=== PATIENT | male | born 1970 | race Caucasian/White ===

== ENCOUNTER 2017-10-17 17:04 | Emergency (ER) | payer SELFPAY ==
[2017-10-17 17:55] VITALS: BP 131/84
--- NOTE | 2017-10-17 18:14 | ED ---
Upper Extremity Pain - HPI Summary HPI Summary: 46 yr old male with left anterior shoulder pain, and a knot lateral to left neck in the muscle posterior to trapezius. He was lifting a piece of steel siding almost a week ago and wind caught it. The wind pushed the steel backward and forced his arm upward and backward. He has had good range of motion, but sleeping is difficulty and he has pain in the muscles medial and behind shoulder. No loss function in hand or numbness. No other complaints. No neck pain. - History of Current Complaint Chief Complaint: UCUpperExtremity Stated Complaint: WC - LEFT SHOULDER COMPLAINT Time Seen by Provider: 10/17/17 18:01 - Allergies/Home Medications Allergies/Adverse Reactions: Allergies Allergy/AdvReac Type Severity Reaction Status Date / Time meperidine Allergy Palpitation Verified 10/17/17 17:49 s Home Medications: Home Medications Adalimumab [Humira] 10 mg SC SEE INSTRUCTIONS 10/17/17 [History Confirmed ] Meloxicam 7.5 mg PO DAILY 10/17/17 [History Confirmed 10/17/17] PMH/Surg Hx/FS Hx/Imm Hx Endocrine/Hematology History: Denies: Hx Diabetes, Hx Thyroid Disease Cardiovascular History: Reports: Hx Hypertension Respiratory History: Denies: Hx Asthma - Surgical History Surgery Procedure, Year, and Place: appy Infectious Disease History: No Infectious Disease History: Denies: Traveled Outside the [place] in Last 30 Days - Family History Known Family History: Positive: None - Social History Occupation: Employed Full-time Alcohol Use: Occasionally Substance Use Type: Reports: None Smoking Status (MU): Never Smoked Tobacco Review of Systems Constitutional: Negative Positive: Other - left shoulder pain All Other Systems Reviewed And Are Negative: Yes Physical Exam Triage Information Reviewed: Yes Vital Signs On Initial Exam: Initial Vitals Temp Pulse Resp BP Pulse Ox 98.7 F 69 16 131/84 98 10/17/17 17:49 10/17/17 17:49 10/17/17 17:49 10/17/17 17:49 10/17/17 17:49 Vital Signs Reviewed: Yes Appearance: Positive: Well-Appearing, No Pain Distress Skin: Positive: Warm, Skin Color Reflects Adequate Perfusion Head/Face: Positive: Normal Head/Face Inspection Eyes: Positive: EOMI ENT: Positive: Normal ENT inspection Neck: Positive: Nontender. Negative: Tenderness @ Respiratory/Lung Sounds: Positive: Other - normal effort Cardiovascular: Positive: Pulses are Symmetrical in both Upper and Lower Extremities Musculoskeletal: Positive: Other - the left anterior shoulder is tender over the long head biceps tendon. Some tenderness over the supraspinatus muscle belly mild tender, no STS, no mass. He has good range of motion left shoulder internal external rotation, abduction and forward flexion good. Normal function of left hand neurovasc intact. Neurological: Positive: Sensory/Motor Intact, Alert, Oriented to Person Place, Time, CN Intact II-III Psychiatric: Positive: Normal - Edi Coma Scale Best Eye Response: 4 - Spontaneous Best Motor Response: 6 - Obeys Commands Best Verbal Response: 5 - Oriented Coma Scale Total: 15 Diagnostics - Vital Signs Vital Signs Temp Pulse Resp BP Pulse Ox 10/17/17 17:49 98.7 F 69 16 131/84 98 - Laboratory Lab Statement: Any lab studies that have been ordered have been reviewed, and results considered in the medical decision making process. - Radiology left shoulder Xray Interpretation: Positive (See Comments) - possible acromium fracutre. Radiology Interpretation Completed By: Radiologist Course/Dx - Course Course Of Treatment: 46 yr old xrays discussed with him. he is not focally tender over the acromium or scapula. 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 I have relayed this topatient. The sling is recommended and follow up with Orthopedic surgery to eval his shoulder, rotator cuff and acromium more. Light duty at work till clear by ortho. - Diagnoses Provider Diagnoses: Rotator cuff injury Discharge - Discharge Plan Condition: Good Disposition: HOME Prescriptions: Ibuprofen TAB* [Motrin TAB* 600 MG] 600 mg PO Q8H PRN #14 tab PRN Reason: Pain Patient Education Materials: Rotator Cuff Injury (ED) Forms: *Work Release Referrals: Sharyn Hernandez [Primary Care Provider] - Robbi Macario MD [Medical Doctor] - 1 Day
--- NOTE | 2017-10-17 18:38 | RAD ---
INDICATION: Left shoulder pain COMPARISON: None TECHNIQUE: Routine frontal, Y and axial views were obtained. FINDINGS: There is the possibility of a fracture of the acromion/scapula. Consider CT imaging if there is persistent concern. The a.c. and glenohumeral joints are intact. IMPRESSION: POSSIBLE SCAPULAR FRACTURE. SUGGEST FOLLOW-UP AND/OR CT IMAGING INDICATED.
== END 2017-10-17 19:13 | disposition home or self-care (01) ==
LOC: UCCORT 17:04
DX: Z88.5 Allergy status to narcotic agent (principal); S46.002A Unspecified injury of muscle(s) and tendon(s) of the rotator cuff of left shoulder, initial encounter; X50.0XXA Overexertion from strenuous movement or load, initial encounter; Y93.89 Activity, other specified; Y92.9 Unspecified place or not applicable; Y99.0 Civilian activity done for income or pay; E11.9 Type 2 diabetes mellitus without complications; I10 Essential (primary) hypertension
CPT/HCPCS: 99213; G0463

== ENCOUNTER 2017-12-12 09:08 | Day surgery (SDC) | payer BC, OTHER ==
--- NOTE | 2017-12-03 04:09 | HP ---
PREOPERATIVE HISTORY AND PHYSICAL: DATE OF ADMISSION/SURGERY: 12/12/17 [facility] DATE OF OFFICE VISIT: 11/29/17 ATTENDING SURGEON: Dr. Jessica Purvis.* (DICTATED BY NUSRAT EDMONDS) PROCEDURE: Left shoulder arthroscopic rotator cuff repair, decompression, debridement, subpectoral biceps tenodesis. CHIEF COMPLAINT: Left shoulder pain. HISTORY OF PRESENT ILLNESS: Brian is a 46-year-old male who presents to clinic for left shoulder pain due to rotator cuff tear and biceps tendinitis. He has failed conservative measures and therefore has agreed to undergo a left shoulder arthroscopic rotator cuff repair, decompression, debridement, and subpectoral biceps tenodesis with on 12/12/17. PAST MEDICAL HISTORY: Hypertension, positive for HLA-B27, and plantar fasciitis. PAST SURGICAL HISTORY: Appendectomy. The patient denies prior complications with anesthesia. MEDICATIONS: 1. Atenolol 50 mg 1 by mouth daily. 2. Humira 40 mg/0.8 mL inject subcu every 2 weeks. 3. Hydrochlorothiazide 25 mg 1 by mouth daily. 4. Meloxicam 7.5 mg 1 by mouth daily. ALLERGIES: DEMEROL. FAMILY HISTORY: Positive for heart disease and back problems. Denies family history of DVT or PE. SOCIAL HISTORY: He is . He lives with his . 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 He denies tobacco use. He reports occasional alcohol consumption. He denies illegal drug use. REVIEW OF SYSTEMS: A 14-point review of systems was reviewed with the patient. Positive for current complaint, otherwise negative. Denies fevers, chills, chest pain, shortness of breath, history of DVT or PE, history of bleeding disorder, history of hep C or HIV. PHYSICAL EXAMINATION GENERAL: A 46-year-old well-developed, well-nourished male, in no acute distress. Alert and oriented x3. Appropriate mood and affect. VITAL SIGNS: Pulse 60, blood pressure 120/80, respiratory rate 16, temperature 98. HEENT: Normocephalic, atraumatic. PERRLA. Throat clear. NECK: Supple. PULMONARY: Lungs are clear to auscultation bilaterally. No wheezing, rhonchi, or rales. CARDIO: Regular rate and rhythm. S1 and S2. No murmurs, gallops, or rubs. No edema. ABDOMEN: Positive bowel sounds, soft, nontender. NEURO: Alert and oriented x3. Cranial nerves grossly intact. Sensation intact to light touch. MUSCULOSKELETAL: Left upper extremity, skin is intact. No warmth or erythema. Tenderness over the bicipital groove. Forward flexion abduction to 170, external rotation to 75, internal rotation to T12. +5/5 strength to rotator cuff testing with pain with supraspinatus testing. Positive Yariel, impingement, [place], [place] and [place]. +2 radial pulse. Sensation intact to light touch distally. DIAGNOSTIC STUDIES: Multi-view x-rays of the left shoulder and MRI revealed os acromion and full-thickness supraspinatus tendon tear with partial tear of the subscap in the anterior portion and fluid in the bicipital groove. IMPRESSION: Left shoulder rotator cuff tear and biceps tendinitis. PLAN: The patient is scheduled to undergo a left shoulder arthroscopic rotator cuff repair, decompression, debridement, and subpectoral biceps tenodesis with Dr. Purvis on 12/12/17. He will return to the office 10 to 14 days postop for followup and suture removal. Percocet will be used for postop pain management and Keflex will be used for antibiotic prophylaxis. The patient will continue to work on light duty until surgery and then will be out of work from date of surgery until further notice. NUSRAT EDMONDS [id number]/[facility] #: [id number] DOMONIQUE
[~2017-12-12 09:08] MED LIST: Buffered Lidocaine 0.9% SYRIN* 5 ML/SYR SYRINGE INTRADERM ONE; Dexamethasone TAB* 4 MG PO ONE; DiMENhydriNATE IV* 50 MG/ML VIAL IV PUSH PRN; Famotidine TAB* 20 MG PO ONE; Morphine INJ* 2 MG/ML 1 ML CARPUJECT IV PRN; Naloxone* 0.4 MG/ML 1 ML VIAL IV PRN; Ondansetron INJ* 2 MG/ML VIAL ONE; PROCHLORPERAZINE INJ 5 MG/ML 2 ML VIAL IV PRN; Scopolamine 1.5 mg* PATCH TRANSDERM PRN; fentaNYL* 50 MCG/ML 2 ML VIAL (100 MCG VIAL) IV PRN; oxyCODONE/Acetamin 5/325 MG* TAB PO PRN
[2017-12-12] MEDS ORDERED: fentaNYL* 50 MCG/ML 2 ML VIAL (100 MCG VIAL) ONE (09:17)
[2017-12-12] MEDS ORDERED: Midazolam* 1 MG/ML 5 ML VIAL (5 MG) ONE (09:17)
[2017-12-12] MEDS ORDERED: Ondansetron ODT TAB* 4 MG ONE (09:41)
[2017-12-12] MEDS ORDERED: Dexamethasone TAB* 4 MG ONE (09:42)
[2017-12-12] MEDS ORDERED: ceFAZolin 2 GM PREMIX (*) 2 GM/50 ML BAG IVPB ONE (09:42)
[2017-12-12] MEDS ORDERED: Famotidine TAB* 20 MG ONE (09:42)
[2017-12-12] MEDS ORDERED: Bupivacaine 0.25% SDV* 30 ML ONE (10:41)
[2017-12-12] MEDS ORDERED: Ketorolac INJ* 30 MG/ML 1 ML VIAL ONE (11:52)
[2017-12-12] MEDS ORDERED: Lidocaine 2% PF * 5 ML VIAL ONE (11:52)
[2017-12-12] MEDS ORDERED: Propofol* 10 MG/ML 20 ML BTL IV PUSH ONE (11:52)
[2017-12-12] MEDS ORDERED: Metoprolol Tartrate IV* 1 MG/ML 5 ML VIAL ONE (12:11)
[2017-12-12 13:42] VITALS: BP 122/89
--- NOTE | 2017-12-13 04:53 | OP ---
DATE OF OPERATION: 12/12/17 - [facility] DATE OF : 70 ATTENDING SURGEON: Jessica Purvis MD WEB SYSTEMS DEVELOPER: NUSRAT Trevino. An reference assistant was needed for the entirety of the case to help with positioning, retraction, and utilized throughout all portions of case. ANESTHESIOLOGIST: Dr. Hernandez. ANESTHESIA: General interscalene block. PRE-OP DIAGNOSIS: Left shoulder full thickness tear of the supraspinatus tendon , bicipital tendonitis with possible SLAP tear. POST-OP DIAGNOSIS: Left shoulder full thickness tear of the supraspinatus tendon, bicipital tendonitis with possible SLAP tear. OPERATIVE PROCEDURE: 1. Left shoulder arthroscopy with glenohumeral debridement. 2. Subacromial decompression with acromioplasty. 3. Rotator cuff repair in double-row fashion, supraspinatus. 4. Subpectoral biceps tenodesis. IMPLANTS USED: One 4.75 Healicoil, one Multifix, one Q-Fix. COMPLICATIONS: None. ESTIMATED BLOOD LOSS: Minimal. INDICATIONS: Brian Choi is a 46-year-old male who sustained a work-related injury on 10/11/17 when he was holding a piece of heavy construction material and his arm was jerked back posteriorly by the wind while he was holding the item. He was having a lot of pain. He has failed conservative management. He had an MRI that demonstrated full thickness tear of the supraspinatus tendon as well as bicipital tendonitis. Risks and benefits of surgery were discussed at length including but not limited to bleeding, infection, damage to nerves, vessels, surrounding structures, wound nonhealing, persistent pain, need for surgery, scarring, stiffness, risk of DVT, incomplete relief of symptoms, risk of anesthesia, need for further surgery. DESCRIPTION OF PROCEDURE: The patient was greeted in the preoperative area by the attending surgeon. The correct extremity was marked and consent was confirmed. First, he underwent interscalene nerve block with anesthesiologist in the preoperative area. Then, he went to the operative suite. He was placed in the supine position on the operating table. He underwent general anesthesia under LMA intubation after which he was appropriately positioned on the operating table in the right lateral decubitus position. An axillary roll was placed. He was secured with a pegboard. The left shoulder was draped unsterile with 10 pounds of traction. The left shoulder was then prepped and draped in the usual sterile fashion beginning with chlorhexidine soap, scrub, and alcohol wipe and a final prep with ChloraPrep. After appropriate surgical pause indicating site, side, procedure, administration of antibiotics, the standard posterolateral portal was made sharply with an 11 blade. The scope was introduced into the joint. The joint was examined. There were grade 0 to 1 changes to the glenohumeral joint. Anterior and superior labrum had mild fraying. Superior labrum had tearing in the biceps, had damage to the manjinder as well as synovitis. The anterior portal was made in an outside-in fashion. The shaver was used to debride the anterior , posterior, superior labrum and the biceps was then tenotomized using the shaver. The undersurface of the supraspinatus had a full thickness tear. The subscapularis was intact. The infraspinatus looked largely intact as well. Inferior recess was intact with synovitis. Once the debridement was completed inside the shoulder, the scope was positioned in the subacromial space. While in the subacromial space, lateral portal was made in an outside-in fashion. Shaver was used to debride back the abundant synovitis and bursitis that was present. This demonstrated a small U-shaped tear of the supraspinatus tendon. The undersurface of the acromion was then skeletonized using an electrocautery device. The 4-0 oval pan was then used to do a small acromioplasty. Once this was completed, all fluid and debris was removed from this portion of the case. Attention was directed to the rotator cuff. Again, there was a small U-shaped tear. This was a full thickness tear. The greater tuberosity was skeletonized using electrocautery device. The rasp as well as the 4-0 oval pan was then used to gently decorticate and allow for good bony bleeding bed. The cuff was then mobilized and was easily able to return to the appropriate footprint. Once this was determined through a separate stab incision, a 4.75 Healicoil was placed with excellent purchase. The patient had very good quality bone. Sutures were passed to the tendon in a horizontal mattress configuration. This was then tied down and then the remaining sutures were then passed through a Multifix anchor, which was used for a lateral row fixation. This allowed for pentecostal of the supraspinatus to the footprint and then further compression took place. Prior to this point, the awl was used to do bone marrow to allow for bone marrow aspirate and bone marrow venting to allow for further sites of bleeding and healing. Once this was completed, final images were obtained. The wounds were copiously irrigated with sterile saline and attention was directed to the biceps. The bed was airplaned to the left side. The anterior aspect of the shoulder was prepped again using ChloraPrep. The 15-blade was used to make an incision in line with the biceps encompassing the inferior border of the pec. The soft tissues were carefully dissected to expose the fascia. The remainder of dissection was done bluntly. The pec was then elevated and the biceps was brought through the wound and it had abundant synovitis and erythema. The groove had been prepared using electrocautery device, the red ball rasp and osteotome to allow for bony bleeding bed. The Q-Fix guide was then used to drill unicortically. The Q-Fix was deployed with excellent purchase. The sutures were then passed through the tendon in a Marcin Abhay-type configuration. The excess stump was excised. The excess biceps was excised back in to the wound and the wounds were copiously irrigated with sterile saline. The portals were closed with nylon. The anterior wound was closed in layers with 2- 0 Vicryl and 3-0 Monocryl. 20 cc of 0.25% Marcaine were injected around the anterior wound. Sterile dressings were applied as well as a Cryo/Cuff and an UltraSling. He was awoken from anesthesia and transferred to the PACU in stable condition. POSTOPERATIVE PLAN: He will be nonweightbearing. He will be discharged with pain medications and antibiotics. DVT prophylaxis is considered, but deferred due to no previous personal or family history. I will see the patient back in 10 to 14 days. [id number]/[facility] #: [id number] DOMONIQUE
[2017-12-15] MEDS ORDERED: Scopolamine PATCH Remove* 1 NOTE MISC PATCH OFF ONE (05:47)
== END 2017-12-12 13:36 | disposition home or self-care (01) ==
LOC: OREAST 09:08
PROVIDERS: ATTEND Orthopaedic Surgery
DX: S46.012A Strain of muscle(s) and tendon(s) of the rotator cuff of left shoulder, initial encounter (principal); S43.492A Other sprain of left shoulder joint, initial encounter; M75.22 Bicipital tendinitis, left shoulder; X50.0XXA Overexertion from strenuous movement or load, initial encounter; Y93.89 Activity, other specified; Y92.89 Other specified places as the place of occurrence of the external cause; Y99.0 Civilian activity done for income or pay; G89.18 Other acute postprocedural pain; I10 Essential (primary) hypertension; M72.2 Plantar fascial fibromatosis
CPT/HCPCS: A9270-GY; C1776; J0690; J1885; J2250; J2704; J3010; J3490; J8540

== ENCOUNTER 2018-02-04 08:10 | Emergency (ER) | payer BC, OTHER ==
[2018-02-04 08:27] VITALS: BP 138/94
--- NOTE | 2018-02-04 08:57 | UC ---
Psychiatric Complaint HPI - HPI Summary HPI Summary: Patient has left shoulder surgery 2 months ago. over the past few weeks he feels like there is something wrong. HE has been re evaluated by the surgeon and his PT and has been reassured the shoulder is healing well. He denies any SOB, palpitations. He has not been sleeping, eating or able to get rid of the thoughts that something is going to happen. He has been out of work since the surgery. He has never had any history of anxiety or depression. he just feels "blah" but cant shake the worry. He denies the desire to hurt himself or others. he states, NO I dont want anything to happen to me. - History Of Current Complaint Chief Complaint: UCGeneralIllness Stated Complaint: PERSONAL Time Seen by Provider: 02/04/18 08:26 Hx Obtained From: Patient ?: No Onset/Duration: Sudden Onset, Lasting Weeks Timing: Constant Severity Initially: Mild Severity Currently: Severe Character: Fearful, Anxious Aggravating Factor(s): Recent Stress - surgery, out of work Alleviating Factor(s): Nothing Associated Signs And Symptoms: Sleep Disturbance, Appetite Change, Social Withdrawal - Risk Factor(s) Completed Suicide Risk Factors: Male, White [place]ian - Allergies/Home Medications Allergies/Adverse Reactions: Allergies Allergy/AdvReac Type Severity Reaction Status Date / Time meperidine Allergy Palpitation Verified 02/04/18 08:18 s Home Medications: Home Medications Cyclobenzaprine TAB* [Flexeril 10 MG TAB*] 10 mg PO BID PRN 02/04/18 [History Confirmed 02/04/18] PMH/Surg Hx/FS Hx/Imm Hx Previously Healthy: Yes Cardiovascular History: Hypertension - Surgical History Surgical History: Yes Surgery Procedure, Year, and Place: Appendectomy age 16. L RCT repair. - Family History Known Family History: Positive: Hypertension - Social History Alcohol Use: Occasionally Substance Use Type: None Smoking Status (MU): Never Smoked Tobacco Review of Systems Constitutional: Negative Skin: Negative Eyes: Negative ENT: Negative Respiratory: Negative Cardiovascular: Negative Gastrointestinal: Negative Genitourinary: Negative Motor: Negative Neurovascular: Negative Musculoskeletal: Negative Neurological: Negative Psychological: Anxious Is Patient Immunocompromised?: No All Other Systems Reviewed And Are Negative: Yes Physical Exam Triage Information Reviewed: Yes Appearance: Well-Appearing, No Pain Distress, Well-Nourished Vital Signs: Initial Vital Signs Temp 97.9 F 02/04/18 08:21 Pulse 71 02/04/18 08:21 Resp 16 02/04/18 08:21 BP 138/94 02/04/18 08:21 Pulse Ox 99 02/04/18 08:21 Vital Signs Reviewed: Yes Eye Exam: Normal ENT Exam: Normal Dental Exam: Normal Neck exam: Normal Neck: Positive: Supple, Nontender, No Lymphadenopathy Respiratory Exam: Normal Respiratory: Positive: Chest non-tender, Lungs clear, Normal breath sounds, No respiratory distress Cardiovascular Exam: Normal Cardiovascular: Positive: RRR, No Murmur, Pulses Normal Abdominal Exam: Normal Abdomen Description: Positive: Nontender, No Organomegaly, Soft Bowel Sounds: Positive: Present Musculoskeletal: Positive: ROM Limited @ - in left shoulder, wearing a sling Neurological Exam: Normal Neurological: Positive: Alert, Muscle Tone Normal Psychological: Positive: Other: - appears distressed and anxious Skin Exam: Normal Psych Complaint Course/Dx - Course Course Of Treatment: hx obtained, exam performed ,meds reviewed, we did an EKG to rule out a possible cardiac abnormality, lungs are clear, physically he appears well. He admits to needing help with this overwhelming sense of worry. We attempted to find a counsling office open to day without any luck. He is not suicidal and we agreed on a plan for the weekend. I prescribed 4 doses of ativan to take over the weekend. He is aware that if these do not help to go to the ER for further mental health evaluation. Tuesday he will contact a counseling service to obtain further assistance. - Differential Dx/Diagnosis Provider Diagnoses: acute anxiety. s/p rotator cuff repair Discharge - Sign-Out/Discharge Documenting (check all that apply): Discharge/Admit/Transfer - Discharge Plan Condition: Stable Disposition: HOME Patient Education Materials: Anxiety (ED) Referrals: Sharyn Hernandez [Primary Care Provider] - Additional Instructions: 1. Take the medication as prescribed. 2. If your worry/anxiety becomes worse, please be evaluated in the ER by there Mental Health counselors. 3. Tuesday contact one of the following counselors/therapists who can help you walk through this time. 4. You can always contact your PCP for referral as well. Danica Olivo [facility] - Billing Disposition and Condition Condition: STABLE Disposition: Home
--- NOTE | 2018-02-04 10:33 | UC ---
- Progress Note Progress Note: Patient called to review side effects of ativan. He is worried that he will get more depressed as it is listed as a side effect. I did explain that the side effects he is concerned with are usually associated with intermediate card tender use. I recommended trying one and see how he felt. He is in agreement. Encouraged him to call back if he has any more questions. Discharge - Sign-Out/Discharge Documenting (check all that apply): Post-Discharge Follow Up - Discharge Plan Condition: Stable Disposition: HOME Prescriptions: LORazepam [Ativan] 0.5 mg PO BID #5 tablet MDD 2 tab Patient Education Materials: Anxiety (ED) Referrals: Sharyn Hernandez [Primary Care Provider] - Additional Instructions: 1. Take the medication as prescribed. 2. If your worry/anxiety becomes worse, please be evaluated in the ER by there Mental Health counselors. 3. Tuesday contact one of the following counselors/therapists who can help you walk through this time. 4. You can always contact your PCP for referral as well. Danica Olivo [facility] - Billing Disposition and Condition Condition: STABLE Disposition: Home
== END 2018-02-04 09:24 | disposition home or self-care (01) ==
LOC: UCCORT 08:10
DX: F41.9 Anxiety disorder, unspecified (principal); Z98.890 Other specified postprocedural states; Z88.5 Allergy status to narcotic agent; I10 Essential (primary) hypertension
CPT/HCPCS: 93005; 99212; G0463

== ENCOUNTER 2018-06-10 09:07 | Inpatient (IN) | payer BC, OTHER ==
--- OUTSIDE RECORDS SUMMARY | 2018-06-10 09:18 | XMS REPORT ---
:1970 External Reference #:[id number] Author Organization [employer] [address] Address [address] [place] [address] Phone [phone] Care Team Providers Name Role Phone Suzanne Olsen FNP Primary Care Physician Unavailable Payers Type Date Identification Numbers Payment Provider Subscriber Commercial Policy Number: [id number] [employer] Nicolette Choi PayID: [id number] [address] [address] [place] [address] Workers Compensation Onset: 2017 Policy Number: [employer]ers Brian Choi [id number] Group Name: Herminia [phone] [address] PayID: [id number] [place] [address] Problems Date Description Provider Status Onset: 03/10/2018 Disorder of bursa of shoulder region Jessica Purvis MD Active Onset: 01/31/2018 Bicipital tenosynovitis Jessica Purvis MD Active Onset: 01/31/2018 Sprain of shoulder and upper arm Jessica Purvis MD Active Onset: 01/31/2018 Strain of musc/tend the rotator cuff of Jessica Purvis MD Active right shoulder, subs Family History Date Family Member(s) Problem(s) Comments Father back issues Social History Type Date Description Comments Marital Status 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 ETOH Use Occasionally consumes alcohol Smoking Patient has never smoked Recreational Drug Use Denies Drug Use Daily Caffeine Consumes on average 2 cups of regular coffee per day Daily Caffeine consumes chocolate occasionally Daily Caffeine soda occassionally Exercise Type/Frequency Does not exercise Allergies, Adverse Reactions, Alerts Date Description Reaction Status Severity Comments 10/18/2017 Demerol active tachycardia Medications Medication Date Status Form Strength Qnty SIG Indications Ordering Provider Atenolol / Active Tablets 50mg 1 by Raúl, 0000 mouth Suzanne daily DARIEL Ontiveros Humira Pen / Active PNKT 40mg/0.8M injects Romero, 0000 L SQ every 2 weeks. , M.D. Hydrochlorothiazide / Active Tablets 25mg 1 by Raúl, 0000 mouth Suzanne daily DARIEL Ontiveros Meloxicam / Active Tablets 15mg 1 by Heather, 0000 mouth Jianghong daily , M.D. Cyclobenzaprine HCL 01/31/ Hx Tablets 10mg 30tab take 1 S46.012A Zaneb 2017 - s tab 3 Yaniv, 04/06/ times a 2017 day as needed Percocet 11/29/ Hx Tablets 5-325mg 30tab 1-2 tabs Zaneb 2017 - s by mouth Yaniv, 12/21/ every 2017 4-6 hours as needed post op pain. Do not take before surgery Keflex 11/29/ Hx Capsules 500mg 12cap take 1 Zaneb 2018 - s tab by Yaniv, 12/21/ mouth 2017 four times a day x 3 days. DO Not take before surgery Ibuprofen / Hx Tablets 600mg 1 by Raúl, 0000 - mouth as Jose 10/31/ needed 2017 Medications Administered in Office Medication Date Status Form Strength Qnty SIG Indications Ordering Provider Triamcinolone 01/13/ Administered Injection Zaneb (Kenalog) 2017 MD Yaniv Vital Signs Date Vital Result Comment 05/30/2018 Height 70 inches 5'10" Weight 200.00 lb Heart Rate 70 /min BP Systolic 126 mmHg BP Diastolic 76 mmHg Body Temperature 95.9 F Pain Level 2 BMI (Body Mass Index) 28.7 kg/m2 04/25/2018 Height 68.5 inches 5'8.50" Weight 200.00 lb BP Systolic 136 mmHg BP Diastolic 82 mmHg Respiratory Rate 18 /min Pain Level 3 BMI (Body Mass Index) 30.0 kg/m2 04/07/2018 Height 68.5 inches 5'8.50" Heart Rate 64 /min BP Systolic 140 mmHg BP Diastolic 82 mmHg Body Temperature 97.0 F Pain Level 7 03/10/2018 Height 68.5 inches 5'8.50" Weight 200.00 lb BP Systolic 134 mmHg BP Diastolic 84 mmHg Respiratory Rate 18 /min Pain Level 5 BMI (Body Mass Index) 30.0 kg/m2 01/31/2018 Height 68.5 inches 5'8.50" Weight 200.00 lb BP Systolic 144 mmHg BP Diastolic 80 mmHg Respiratory Rate 18 /min Pain Level 4 BMI (Body Mass Index) 30.0 kg/m2 01/27/2018 Height 68.5 inches 5'8.50" Weight 200.00 lb Heart Rate 74 /min Respiratory Rate 16 /min Pain Level 3 BMI (Body Mass Index) 30.0 kg/m2 01/13/2018 Height 68.5 inches 5'8.50" Weight 200.00 lb BP Systolic 124 mmHg BP Diastolic 78 mmHg Respiratory Rate 20 /min Pain Level 8 BMI (Body Mass Index) 30.0 kg/m2 12/22/2017 Height 68.5 inches 5'8.50" Weight 200.00 lb Heart Rate 68 /min BP Systolic 120 mmHg BP Diastolic 88 mmHg Body Temperature 97.6 F Pain Level 0 BMI (Body Mass Index) 30.0 kg/m2 11/29/2017 Heart Rate 60 /min BP Systolic 120 mmHg BP Diastolic 80 mmHg Respiratory Rate 16 /min Body Temperature 98.0 F Pain Level 4 11/17/2017 Height 68.50 inches 5'8.50" Weight 200.00 lb Heart Rate 58 /min BP Systolic Sitting 140 mmHg BP Diastolic Sitting 90 mmHg Respiratory Rate 16 /min Pain Level 2 BMI (Body Mass Index) 30.0 kg/m2 11/15/2017 Height 68.50 inches 5'8.50" Weight 200.00 lb Heart Rate 84 /min BP Systolic Sitting 140 mmHg BP Diastolic Sitting 90 mmHg Respiratory Rate 16 /min Pain Level 2 BMI (Body Mass Index) 30.0 kg/m2 11/01/2017 Height 68.50 inches 5'8.50" Heart Rate 63 /min BP Systolic 134 mmHg BP Diastolic 96 mmHg Respiratory Rate 20 /min Pain Level 2 with stiffness O2 % BldC Oximetry 98 % 10/18/2017 Height 68.50 inches 5'8.50" Weight 202.00 lb Heart Rate 80 /min BP Systolic 132 mmHg BP Diastolic 82 mmHg Respiratory Rate 20 /min Pain Level 2 BMI (Body Mass Index) 30.3 kg/m2 Results Description No Information Procedures Date CPT Code Description Status 01/13/2018 22959 Inject/Drain Joint/Bursa Major W/O US Completed 12/12/2017 34214 Arthroscopy Shoulder,W/Rotator Cuff Repair Completed 12/12/2017 30673 Arthroscopy Shoulder,W/Rotator Cuff Repair Completed 12/12/2017 27204 Arthroscopy,Shoulder Decompression Of Subacromial Space Completed W/Acromio 12/12/2017 29157 Arthroscopy,Shoulder Decompression Of Subacromial Space Completed W/Acromio 12/12/2017 79600 Arthroscopy Shoulder Debridement Extensive Completed 12/12/2017 97638 Arthroscopy Shoulder Debridement Extensive Completed 12/12/2017 84624 Tenodesis Biceps Long Tendon Completed 12/12/2017 33876 Tenodesis Biceps Long Tendon Completed 10/18/201749702 Inject Tendon Sheath Or Ligament Aponeurosis Eg Plantar Completed Fascia Encounters Type Date Location Provider CPT E/M Dx Office Visit 05/30/2018 [facility] [place] [address] S43.492A 9:00a C.M.A. M75.52 S43.492D Office Visit 04/25/2018 9:30a [facility] [place] [address] S43.492A C.M.A. M75.52 S43.492A S43.492D Office Visit 04/07/2018 8:30a [facility] [place] [address] S43.492A C.M.A. M75.52 S43.492A S43.492D Office Visit 01/31/2018 10:25a [facility] [place] [address] M25.511 C.M.A. S46.011D Office Visit 01/13/2018 8:45a [facility] [place] [address] S46.012A C.M.A. M75.22 M75.41 Office Visit 11/17/2017 3:00p [facility] [place] [address] S46.112D C.M.A. S46.012D Office Visit 11/15/2017 1:15p [place] [address] M75.122 Of [facility] [place] Office Visit 11/01/2017 9:00a [place] [address] S46.112D Of [employer] [facility] [place] Office Visit 10/18/2017 1:30p [place] [address] S46.112A Of [facility] [employer] [facility] [place] S46.112A Plan of Care Future Appointment(s):06/30/2018 8:15 am - Jessica Purvis MD at [facility]05/30/2018 - Jessica Purvis, MDS43.492A Other sprain of left shoulder joint, initial encounterFollow up:Follow up: 1 ylmdzQ38.52 Bursitis of left vppazspfG19.492D Other sprain of left shoulder joint, subsequent encounterFollow up:Follow up: 1 month
--- NOTE | 2018-06-10 09:53 | ED ---
Altered Mental Status - HPI Summary HPI Summary: This patient is a 47 year old male presenting to [facility] accompanied by with a chief complaint of AMS since 4 months ago. Patient underwent shoulder surgery in November 2017 and a month after surgery, patient states that he started feeling very foggy and dazed. Patient states he is so dazed, he cannot think properly and can barely work. This has been constant since onset. Patient states that he also eventually developed paranoia and a sense that someone was coming to get him, but this subsided and patient notes that he only has mild anxiety currently. The pain in his head is rated a 1/10 in severity. Symptoms aggravated by nothing. Symptoms alleviated by nothing. Patient additionally reports neck pain, blurred vision. Patient denies weakness or trouble with ambulation. - History Of Current Complaint Chief Complaint: EDAltMentalStatus Stated Complaint: CONFUSION Time Seen by Provider: 06/10/18 09:15 Hx Obtained From: Patient Onset/Duration: Still Present Timing: Constant Severity Currently: Moderate Character: Confusion Aggravating Factor(s): Nothing Alleviating Factor(s): Nothing Associated Signs And Symptoms: Positive: Dizziness. Negative: Weakness - Allergies/Home Medications Allergies/Adverse Reactions: Allergies Allergy/AdvReac Type Severity Reaction Status Date / Time meperidine Allergy Palpitation Verified 06/10/18 09:09 s Home Medications: Home Medications Buspar TAB * 5 mg PO BID 06/10/18 [History Confirmed 06/10/18] Celexa 40 mg PO DAILY 06/10/18 [History Confirmed 06/10/18] Risperidone 2 mg PO BEDTIME 06/10/18 [History Confirmed 06/10/18] PMH/Surg Hx/FS Hx/Imm Hx Previously Healthy: No Endocrine/Hematology History: Denies: Hx Diabetes, Hx Thyroid Disease Cardiovascular History: Reports: Hx Hypertension - Hypertension Denies: Other Cardiovascular Problems/Disorders Respiratory History: Denies: Hx Asthma, Other Respiratory Problems/Disorders GI History: Denies: Other GI Disorders History: Denies: Other Problems/Disorders Musculoskeletal History: Reports: Hx Arthritis - SI joint arthritis, Right side (thinks), Hx Tendonitis - biceps tendinitis, plantar fasciitis, Other Musculoskeletal History - Complete rotator cuff tear left shoulder, strain of fascia and tendon Sensory History: Denies: Hx Contacts or Glasses, Hx Hearing Aid Opthamlomology History: Denies: Hx Contacts or Glasses Neurological History: Denies: Other Neuro Impairments/Disorders - Surgical History Surgery Procedure, Year, and Place: Appendectomy age 16. L RCT repair. Hx Anesthesia Reactions: Yes - thinks they had trouble waking him up Infectious Disease History: No Infectious Disease History: Denies: Traveled Outside the [place] in Last 30 Days - Family History Known Family History: Positive: Hypertension - Social History Lives: With Family Alcohol Use: Occasionally Hx Substance Use: No Substance Use Type: Reports: None Hx Tobacco Use: No Smoking Status (MU): Never Smoked Tobacco Review of Systems Negative: Fever Positive: Headache. Negative: Weakness Positive: Other - confusion All Other Systems Reviewed And Are Negative: Yes Physical Exam - Summary Physical Exam Summary: VITAL SIGNS: Reviewed. GENERAL: Patient is a well-developed and nourished male who is lying comfortable in the stretcher. Patient is not in any acute respiratory distress. HEAD AND FACE: No signs of trauma. No ecchymosis, hematomas or skull depressions. No sinus tenderness. EYES: PERRLA, EOMI x 2, No injected conjunctiva, no nystagmus. No photophobia. EARS: Hearing grossly intact. Ear canals and tympanic membranes are within normal limits. MOUTH: Oropharynx within normal limits. NECK: Supple, trachea is midline, no adenopathy, no JVD, no carotid bruit, no c- spine tenderness, neck with full ROM. No meningeal signs, no Kernig's or brudzinskis signs. CHEST: Symmetric, no tenderness at palpation LUNGS: Clear to auscultation bilaterally. No wheezing or crackles. CVS: Regular rate and rhythm, S1 and S2 present, no murmurs or gallops appreciated. ABDOMEN: Soft, non-tender. No signs of distention. No rebound no guarding, and no masses palpated. Bowel sounds are normal. EXTREMITIES: FROM in all major joints, no edema, no cyanosis or clubbing. NEURO: Alert and oriented x 3. No acute neurological deficits. Speech is normal and follows commands. SKIN: Dry and warm GCS: 15 Triage Information Reviewed: Yes Vital Signs On Initial Exam: Initial Vitals Temp Pulse Resp BP Pulse Ox 97.7 F 72 16 137/91 98 06/10/18 09:09 06/10/18 09:09 06/10/18 09:09 06/10/18 09:09 06/10/18 09:09 Vital Signs Reviewed: Yes Diagnostics - Vital Signs Vital Signs Temp Pulse Resp BP Pulse Ox 06/10/18 09:09 97.7 F 72 16 137/91 98 - Laboratory Result Diagrams: 06/10/18 10:06 06/10/18 10:06 Lab Statement: Any lab studies that have been ordered have been reviewed, and results considered in the medical decision making process. - Radiology CXR Radiology Interpretation Completed By: Radiologist Summary of Radiographic Findings: CXR reveals, per radiologist, IMPRESSION: NO ACTIVE CARDIOPULMONARY DISEASE. ED physician has reviewed this radiology report. - CT CT Brain CT Interpretation Completed By: Radiologist Summary of CT Findings: CT Brain reveals, per radiologist, IMPRESSION: NO ACUTE INTRACRANIAL PATHOLOGY. ED physician has reviewed this radiology report. CT C-Spine CT Interpretation Completed By: Radiologist Summary of CT Findings: CT C-Spine reveals, per radiologist, IMPRESSION: 1. STRAIGHTENING OF THE CERVICAL LORDOSIS. 2. CHRONIC APPEARING FRACTURE OF THE SPINOUS PROCESS OF C7. 3. DEGENERATIVE DISC DISEASE AND OSTEOARTHRITIS. 4. THERE IS MILD NEURAL FORAMINAL NARROWING AT C4-C5. THERE IS NO OSSEOUS CENTRAL CANAL STENOSIS. ED physician has reviewed this radiology report. - EKG 1001 Cardiac Rate: NL EKG Rhythm: Sinus Rhythm - 64 BPM Summary of EKG Findings: NSR (64 BPM), no ST elevations Altered Mental Statu Course/Dx - Course Assessment/Plan: This patient is a 47 year old male presenting to [facility] accompanied by with a chief complaint of AMS since 4 months ago. Patient underwent shoulder surgery in November 2017 and a month after surgery, patient states that he started feeling very foggy and dazed. Patient states he is so dazed, he cannot think properly and can barely work. This has been constant since onset. Patient states that he also eventually developed paranoia and a sense that someone was coming to get him, but this subsided and patient notes that he only has mild anxiety currently. The pain in his head is rated a 1/10 in severity. Symptoms aggravated by nothing. Symptoms alleviated by nothing. Patient additionally reports neck pain, blurred vision. Patient denies weakness or trouble with ambulation. Blood work without any significant abnormality except for BUN is 27, glucose 112, CPK of 13,843. Head CT negative for acute intracranial pathology. C-spine CT impression: IMPRESSION: 1. STRAIGHTENING OF THE CERVICAL LORDOSIS. 2. CHRONIC APPEARING FRACTURE OF THE SPINOUS PROCESS OF C7. 3. DEGENERATIVE DISC DISEASE AND OSTEOARTHRITIS. 4. THERE IS MILD NEURAL FORAMINAL NARROWING AT C4-C5. THERE IS NO OSSEOUS CENTRAL CANAL STENOSIS. In the ED course the patient was given IV fluids for the rhabdomyolysis. I discuss my physical exam, findings and test results with Dr. Dill from the hospitalist services and he agrees to admit patient to his services. Patient is hemodynamically stable alert and oriented x 3. - Diagnoses Differential Diagnosis/HQI/PQRI: Hypoglycemia, Intoxication, Intracranial Bleed , Medication Reaction, Metabolic Disorder, Seizure Provider Diagnoses: Rhabdomyolysis Discharge - Sign-Out/Discharge Documenting (check all that apply): Patient Departure All imaging exams completed and their final reports reviewed: Yes - Discharge Plan Condition: Stable Disposition: ADMITTED TO [facility] - Billing Disposition and Condition Condition: STABLE Disposition: Admitted to [facility]
[2018-06-10 10:15] LABS: ABS Basophils 0 10^3/ul (0-0.2); ABS Eosinophils 0.1 10^3/ul (0-0.6); ABS Lymphocytes 1.2 10^3/ul (1.0-4.8); ABS Monocytes 0.4 10^3/ul (0-0.8); ABS Nucleated RBC 0 10^3/ul; Eosinophil % 1.4 % (0-6); Hematocrit 45 % (42-52); Hemoglobin 14.9 g/dl (14.0-18.0); Lymphocyte % 26.3 % (25-47); Mean Corpuscular HGB Conc 33 g/dl (31-36); Mean Corpuscular Hemoglobin 27 pg (27-31); Mean Corpuscular Volume 83 fL (80-94); Mean Platelet Volume 7.9 fL (7.4-10.4); Nucleated Red Blood Cells % 0.1; Platelet Count 239 10^3/ul (150-450); Red Blood Count 5.45 10^6/ul (4.00-5.40); Red Cell Distribution Width 13 % (10.5-15); White Blood Count 4.7 10^3/ul (3.5-10.8)
[2018-06-10] MEDS ORDERED: NS 0.9% 1000 ML* 2,000 ML IV ONE (11:35)
[2018-06-10 12:17] LABS: Urine Appearance Clear; Urine Blood Negative (Negative); Urine Color Yellow; Urine Ketones Negative (Negative); Urine Protein Negative (Negative); Urine Specific Gravity 1.019 (1.010-1.030); Urine Urobilinogen Negative (Negative)
[2018-06-10] MEDS ORDERED: NS 0.9% 1000 ML* 1,000 ML IV ONE (13:29)
[2018-06-10] MEDS ORDERED: Acetaminophen TAB* 325 MG PO PRN (13:29)
[2018-06-10] MEDS: NS 0.9% 1000 ML* 1,000 ML IV SCH (16:33)
[2018-06-10] MEDS: risperiDONE TAB* 2 MG PO SCH (20:35)
--- NOTE | 2018-06-10 20:50 | HP ---
CC: Rama Olsen NP * HISTORY AND PHYSICAL: DATE OF ADMISSION: 06/10/18 PRIMARY CARE PROVIDER: Rama Olsen NP CHIEF COMPLAINT: Mental fog. HISTORY OF PRESENT ILLNESS: Mr. Choi is a 47-year-old male who, on 12/12/17, underwent left shoulder surgery, who now presents to the emergency room with complaints of mental fog. The patient states that approximately 1 month after his shoulder surgery, he felt as if his mind was quite foggy. He felt like he cannot concentrate. He has had increased anxiety related to this. He states that not being able to figure out what needs to be done and not being able to concentrate has made him very anxious and depressed. He states at the end of March 2018, he was admitted to [place] for severe paranoia. At that point, he was started on Risperdal at bedtime and Celexa. The paranoia has improved; however, he continues to feel very anxious and depressed. He states that his vision seems blurry. He feels that he has had no improvement in his symptoms, otherwise. The patient also states that he wakes up in a full drenching sweat with associated panic. The patient is due to go back to work on 06/19/18 and is very nervous about this stating that he could hurt himself at work, because he is not able to concentrate. He has been on light duty at work where he is still unable to concentrate. PAST MEDICAL HISTORY: 1. Hypertension. 2. The patient reports possible rheumatoid arthritis of the sacroiliac joints. 3. Depression/anxiety. 4. HLA-B27 positive. PAST SURGICAL HISTORY: 1. Appendectomy. 2. Left shoulder arthroscopy with glenohumeral debridement, subacromial decompression with acromioplasty, rotator cuff repair, and subpectoral biceps tenodesis. MEDICATIONS: 1. BuSpar 5 mg p.o. b.i.d. 2. Risperidone 2 mg p.o. q.h.s. 3. Celexa 40 mg p.o. daily. 4. Meloxicam 15 mg p.o. daily. 5. Hydrochlorothiazide 25 mg p.o. daily. 6. Atenolol 50 mg p.o. daily. 7. Humira 10 mg subcutaneous every 2 weeks. ALLERGIES: DEMEROL. FAMILY HISTORY: Mom is living, she is 63, she has a history of depression and anxiety. Dad is also living, he is 67, he also has a history of depression. SOCIAL HISTORY: The patient does not smoke. He drinks alcohol on occasion. 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 He is . He has 1 child. He indicates that his is his healthcare proxy. REVIEW OF SYSTEMS: A complete 11-system review of systems is obtained. Pertinent positives and negatives are as per HPI and otherwise negative. PHYSICAL EXAMINATION GENERAL: The patient is a well-developed, middle-aged male, seen sitting up in the stretcher, in no acute distress. VITAL SIGNS: Blood pressure 113/74, pulse 58, respirations 14, temp 97.7, O2 sats 97% on room air. HEENT: Pupils are equal and round. Extraocular muscles are intact. Oropharynx is clear. Oral mucosa is moist. There is no submandibular, cervical , or supraclavicular adenopathy. Thyroid is not enlarged. No thyroid nodules noted. PULMONARY: Lungs are clear to auscultation bilaterally. CARDIAC: Normal S1, S2. Regular rate and rhythm. I do not appreciate any murmurs. There is no lower extremity edema. ABDOMEN: Bowel sounds are present. Abdomen is soft, nontender, nondistended. MUSCULOSKELETAL: There is no cyanosis or clubbing of the digits. There is full active range of motion of all 4 extremities. NEUROLOGIC: Cranial nerves II through XII are grossly intact. Sensation is intact to light touch throughout. Strength is 5/5 and symmetric in both upper and lower extremities bilaterally. PSYCH: The patient is alert. He is oriented x3. Affect appears appropriate. SKIN: Warm and dry. There are no rashes. DIAGNOSTIC STUDIES/LAB DATA: WBC 4.7, hemoglobin 14.9, hematocrit 45, platelets 237. Sodium 138, potassium 4.1, chloride 106, CO2 29, BUN 27, creatinine 0.94, glucose 112, lactic acid 1.0, calcium 9.0, magnesium 2.2. Bilirubin 0.5, AST 183, ALT 50, alk phos 50. Ammonia 48. CPK 13,843. Troponin 0. CRP 1.79. Albumin 4.3. TSH 0.74. Urinalysis reveals specific gravity of 1.019, otherwise negative for signs of infection. Urine drug screen negative. CT brain: No acute intracranial pathology. Cervical spine CT: Straightening of the cervical lordosis is noted. Chronic appearing fracture of the spinous process of C7. Degenerative disk disease and osteoarthritis is noted. There is mild neural foraminal narrowing at C4-5. There is no osseous central canal stenosis. ASSESSMENT AND PLAN: Mr. Choi is a 47-year-old male, who underwent elective left shoulder surgery in November of 2017 and since then, has had what he describes as a mental fog and the inability to concentrate. 1. Mental fog. The patient's symptoms are very vague. Nothing has yet to be found on exam, imaging, or labs to explain his symptoms. The patient will be seen by Neurology in consultation. My suspicion is that the patient has persistent depression and anxiety and this is likely what has led to his mental fog. Perhaps, the patient needs an adjustment in his psychiatric medications. I will hold off on this until he is seen by Neurology. Perhaps, Psychiatry consultation will be helpful. Additionally, he was started on Risperdal at bedtime for paranoia that was present in March. Perhaps, this is leading to some foggy sensation for him. I do not want to stop this at this point without consulting Psychiatry. 2. Elevated CPK. The patient has evidence of possible rhabdomyolysis with a CPK of almost 14,000. The patient does not give any history of working out, running, heavy lifting or anything else that would cause rhabdomyolysis. I question if he may have a myopathy. Dr. Fernandez will help weigh in on this as well. ESR and CRP are normal. Dr. Fernandez over the phone while we were initially talking did recommend that I send gliadin antibodies which have been sent. The patient will receive 1 L of normal saline followed by 100 mL per hour. A repeat CPK will be obtained tomorrow morning as well a repeat basic metabolic panel. 3. Hypertension. The patient will be maintained on his usual home medication regimen. 4. Depression/anxiety. I will continue the patient on his home medication regimen and in addition, I will add Ativan 0.5 mg p.o. q.6 hours p.r.n. anxiety. 5. DVT prophylaxis. According to the Adult Thrombosis Prophylaxis Risk Factor Assessment Guide, the patient has a total risk factor score of 2 making him moderate risk. Ambulation will be utilized as DVT prophylaxis. 6. Code status is full. TIME SPENT: Sixty-five minutes was spent admitting this patient. [id number]/[facility] #: [id number] MTDD
--- NOTE | 2018-06-10 22:14 | CONS ---
CONSULTATION REPORT: DATE OF CONSULT: 06/10/18 PATIENT OF: Dr. Dill. HISTORY OF PRESENT ILLNESS: This is a 47-year-old man who since December has had a feeling of being foggy and dazed and unable to think properly and he has trouble walking. He has had, during the course of this, some paranoia but this has resolved and he just has some anxiety. He has had some weakness and blurry vision. He is not falling. He has no numbness. He has no clear headache. He was recently diagnosed with ankylosing spondylitis with some lower back pain. He has not fallen. PAST MEDICAL/SURGICAL HISTORY: He has been otherwise healthy other than a complete rotator cuff tear on his left. He is status post surgery for that as well as an appendectomy but nothing recently. MEDICATIONS: At home include: 1. Risperidone 2 mg daily. 2. Celexa 40 mg daily. 3. BuSpar 5 mg b.i.d. ALLERGIES: He has allergies to MEPERIDINE. FAMILY HISTORY: Positive for hypertension. SOCIAL HISTORY: He does not smoke, drink or use drugs. REVIEW OF SYSTEMS: Negative in all 14 spheres other than the HPI. PHYSICAL EXAM: Temperature 97.8, pulse 60, respiratory rate 16, blood pressure 113/74. He is alert and oriented. There is normal speech and immediate comprehension, but he had difficulty remembering what I told him within 5 minutes. Cranial nerves II through XII are intact. Fundi showed sharp discs. Motor exam revealed normal tone, strength, coordination, and gait. He could get up out of a chair without problem but he had mild difficulty with deep knee bends. He has not tried this before and does not know if this is new or old. Reflexes were 2+ and equal. Toes were downgoing. Neck was supple. Chest: Clear. Cardiovascular: Regular rate and rhythm. Abdomen: Soft with positive bowel sounds. DIAGNOSTIC STUDIES/LAB DATA: His CBC was normal with normal sed rate. He had normal CMP other than a BUN of 27. TSH 0.74, ammonia 48, CPK 13,843 with an elevated AST as well. UA was normal. Toxicology was negative. He had a normal brain CT scan and his cervical CT scan showed a chronic C7 fracture, some degenerative disk disease. No central stenosis visualized. IMPRESSION: I discussed with Brian and also by phone with his as well as the covering hospitalist that he has rhabdomyolysis and he is being hydrated. The etiology of this is unclear, whether this is acute, although there has been no fall or other known injury that would clearly cause an acute bump or whether this is chronic possibly related to his autoimmune disease. His sed rate is less than 10 and so it makes it less likely that this is an inflammatory myositis but it is still possible. If his CPK is coming down rapidly, then it is less likely but if it persists and is high, then he will need EMG nerve condition study as part of the workup. Other etiologies could include things such as viral. The other thing of concern is his brain fogginess over the past several months with some psychological issues that are new as well in the setting of recently diagnosed autoimmune disease. He will need a MRI scan with and without contrast to look for things such as demyelinating disease or signs of [employer] vasculitis. If this is negative, then depending on what the workup shows and how things proceed, he may need EEG and spinal tap to discuss these considerations with him. We are fractionating the CPK with isoenzymes and I have asked Dr. Dill to get the gliadin antibodies. I think that he has had a large autoimmune workup apparently as an outpatient. I do not have the details, but obviously, Lyme titer should be checked as they have not been checked. I would recommend that his data quality consultant comment on his outpatient workup and see if anything further needs to be done inpatient in terms of his immunological markers, serological markers. Depending on how things go, it is conceivable that this could be his mental fog, could be paraneoplastic, but I think in his particular case it is less likely. We will see how things go. Thank you for sharing his case. [id number]/[facility] #: [id number] DOMONIQUE
[2018-06-11] MEDS: NS 0.9% 1000 ML* 1,000 ML IV SCH ×2 (02:48→14:22)
[2018-06-11 05:50] LABS: EGFR Non-African American 95.3 (>60)
[2018-06-11] MEDS: Atenolol TAB* 50 MG PO SCH (08:37)
[2018-06-11] MEDS: LORazepam TAB(*) 0.5 MG PO PRN (08:37)
[2018-06-11] MEDS: Citalopram TAB* 40 MG PO SCH (08:38)
[2018-06-11] MEDS: Hydrochlorothiazide TAB* 25 MG PO SCH (08:38)
[2018-06-11] MEDS ORDERED: risperiDONE TAB* 2 MG PO SCH (09:00)
--- NOTE | 2018-06-11 15:04 | PN ---
Subjective Date of Service: 06/11/18 Interval History: Patient was seen this morning, along with his in the room. their questions were answered to the best of my ability. Both the patient and his expressed their frustrations as why he is becoming worse mentally and having difficulty completing simple tasks. He has been doing his job for 20 years and now he is not able to complete a project that normally he does it almost naturally. He is having more anxiety since his shoulder surgery. He was seen by an outside psychiatrist in [place] and was started on anti anxiety and antidepressant medications and he feels he became worse since he started these medications Past Medical History: Unchanged from Admission Objective Active Medications: Acetaminophen (Tylenol Tab*) 650 mg PO Q4H PRN PRN Reason: PAIN Atenolol (Tenormin Tab*) 50 mg PO QAM [facility] Last Admin: 06/11/18 08:37 Dose: 50 mg Citalopram Hydrobromide (Celexa Tab*) 40 mg PO DAILY [facility] Last Admin: 06/11/18 08:38 Dose: 40 mg Hydrochlorothiazide (Hydrodiuril Tab*) 25 mg PO QAM [facility] Last Admin: 06/11/18 08:38 Dose: 25 mg Sodium Chloride (Ns 0.9% 1000 Ml*) 1,000 mls @ 100 mls/hr IV PER RATE [facility] Last Admin: 06/11/18 14:22 Dose: 100 mls/hr Lorazepam (Ativan Tab(*)) 0.5 mg PO Q6H PRN PRN Reason: ANXIETY Last Admin: 06/11/18 08:37 Dose: 0.5 mg Risperidone (Risperdal*) 2 mg PO BEDTIME [facility] Last Admin: 06/10/18 20:35 Dose: 2 mg Vital Signs - 8 hr 06/11/18 06/11/18 06/11/18 07:10 08:00 08:37 Temperature 97.3 F Pulse Rate 79 Respiratory 18 16 16 Rate Blood Pressure 132/68 (mmHg) O2 Sat by Pulse 97 Oximetry Oxygen Devices in Use Now: None Appearance: No acute distress. anxious. but very pleasant and cooperative Eyes: No Scleral Icterus, PERRLA Ears/Nose/Mouth/Throat: NL Teeth, Lips, Gums, Clear Oropharnyx, Mucous Membranes Moist Neck: NL Appearance and Movements; NL JVP, Trachea Midline Respiratory: Symmetrical Chest Expansion and Respiratory Effort, Clear to Auscultation Cardiovascular: NL Sounds; No Murmurs; No JVD, RRR, No Edema Abdominal: NL Sounds; No Tenderness; No Distention Skin: - - mulitple tatooes over his upper extremeties Neurological: Alert and Oriented x 3 Result Diagrams: 06/10/18 10:06 06/11/18 04:57 Assess/Plan/Problems-Billing Assessment: 47 year old male without significant medical hisotry other than depression recently diagnosed with depression and anxiety has been getting more confused and disoriented to simple day to day to task presented to ED and was found to have acute rhabomyolysis wiht CPK of 14,000 on presentations - Patient Problems (1) Rhabdomyolysis Current Visit: Yes Status: Acute Code(s): M62.82 - RHABDOMYOLYSIS SNOMED Code(s): 446396658 Comment: - Undifferentiated as he denies any statins therapy and denies exercise or heavy work out - At this time I am not sure if he does have underlying genetic disorder such as Siddhartha disease, but without baseline of CPK it will make it difficult to diagnose in the acute setting. will need to have outpatient work up to monitor where his CPK will level off. could have his surgery set it off? At this time , will defer obtaining Myophosphorlase level for outpatient and only if his CPK remain elevated - Neuro input appreciated. he will also benefit from EMG and again outpatient is appropriate - continue IVF fluid - He was on Buspar; Celexa 40 and Risperidone althoug they are unlikely but may need to consider them as potential as well (2) Anxiety Current Visit: Yes Status: Acute Code(s): F41.9 - ANXIETY DISORDER, UNSPECIFIED SNOMED Code(s): 32291874 Comment: - He is on "Buspar TAB * 5 mg PO BID 06/10/18 [History Confirmed 06/10/18] Celexa 40 mg PO DAILY 06/10/18 [History Confirmed 06/10/18] Risperidone 2 mg PO BEDTIME 06/10/18 [History Confirmed 06/10/18]" at home. Buspar was held as it was the last of the three. On ativan prn for now. I did call psych for evaluations and further reocmmendations (3) Altered mental status, unspecified Current Visit: Yes Status: Acute Code(s): R41.82 - ALTERED MENTAL STATUS, UNSPECIFIED SNOMED Code(s): 268433804 Comment: - Neuro input appreciated - whether it is pathological or not. will need to follow up the MRI - EEG and outpatient work up as well could be warranted. (4) DVT prophylaxis Current Visit: Yes Status: Acute Code(s): TZP8525 - SNOMED Code(s): 081386859 Comment: ambulate
[2018-06-11] MEDS: risperiDONE TAB* 2 MG PO SCH (21:22)
[2018-06-12] MEDS: NS 0.9% 1000 ML* 1,000 ML IV SCH ×3 (00:12→20:32)
--- NOTE | 2018-06-12 03:36 | PN ---
NEUROLOGICAL FOLLOWUP: DATE OF SERVICE: 06/11/18 PATIENT OF: Dr. Dill. HISTORY: This 47-year-old man who still notes brain fog, but no other new symptoms, no progressive weakness. MEDICATIONS: Include: 1. Risperdal. 2. Ativan. 3. HydroDIURIL. 4. Celexa. 5. Tenormin. PHYSICAL EXAMINATION: Temperature 97.3, pulse 79, respirations 16, blood pressure 132/68. He is alert, oriented with normal speech and comprehension. Cranial nerves II through XII were intact. Motor exam revealed normal tone and strength. He could do a deep knee bend with only minor hesitancy today, it was a little bit worse yesterday. Chest: Clear. Cardiovascular: Regular rate, rhythm. Abdomen is soft with positive bowel sounds. CPK today was 7900, significantly down from almost 14,000 yesterday. His BUN and creatinine were intact. He is getting his IV fluids. UA negative. He has not had his MRI scans yet. I discussed again with him and his that he has had rhabdomyolysis and this may be due to an acute process or a more chronic problem with very rapid fall in his CPK. Some of what he was having was most likely acute and he will have repeat CPKs tomorrow to make sure that this problem is resolving. If not, he will need an EEG nerve conduction studies part to his workup. Given the brain fog, he will be getting an MRI scan of the brain with and without contrast and then depending what that shows, Dr. Isabel will be picking up his case will decide whether he needs EEG or spinal tap. I discussed these issues with the family. I will be glad to see him back as an outpatient once his inpatient workup is completed. Thank you for sharing his case. [id number]/[facility] #: [id number] DOMONIQUE
[2018-06-12] MEDS: Citalopram TAB* 40 MG PO SCH (08:00)
[2018-06-12] MEDS: Hydrochlorothiazide TAB* 25 MG PO SCH (08:00)
[2018-06-12] MEDS: Atenolol TAB* 50 MG PO SCH (08:00)
[2018-06-12] MEDS: LORazepam TAB(*) 0.5 MG PO PRN (08:03)
[2018-06-12] MEDS ORDERED: Gadoteridol* (CONTRAST) 279.3 MG/ML 10 ML IV ONE (14:29)
--- NOTE | 2018-06-12 16:22 | PN ---
Subjective Date of Service: 06/12/18 Interval History: Patient seen today, he continues to have subjective complains of fogginess and blurry vision. MRI of Brain negative, EEG negative. Neuro consult appreciated. cleared for discharge with outpatient EMG and possible Muscle biopsy if EMG positive. Psych consult officially pending. No events overnight. tolerating Fluid well and CPK is down to 4766. Past Medical History: Unchanged from Admission Objective Active Medications: Acetaminophen (Tylenol Tab*) 650 mg PO Q4H PRN PRN Reason: PAIN Atenolol (Tenormin Tab*) 50 mg PO QAM [facility] Last Admin: 06/12/18 08:00 Dose: 50 mg Citalopram Hydrobromide (Celexa Tab*) 40 mg PO DAILY [facility] Last Admin: 06/12/18 08:00 Dose: 40 mg Hydrochlorothiazide (Hydrodiuril Tab*) 25 mg PO QAM [facility] Last Admin: 06/12/18 08:00 Dose: 25 mg Sodium Chloride (Ns 0.9% 1000 Ml*) 1,000 mls @ 100 mls/hr IV PER RATE [facility] Last Admin: 06/12/18 10:02 Dose: 100 mls/hr Lorazepam (Ativan Tab(*)) 0.5 mg PO Q6H PRN PRN Reason: ANXIETY Last Admin: 06/12/18 08:03 Dose: 0.5 mg Risperidone (Risperdal*) 2 mg PO BEDTIME [facility] Last Admin: 06/11/18 21:22 Dose: 2 mg Vital Signs - 8 hr 06/12/18 06/12/18 06/12/18 09:11 10:41 15:38 Temperature 97.8 F 97.7 F Pulse Rate 70 73 Respiratory 16 16 16 Rate Blood Pressure 121/60 124/72 (mmHg) O2 Sat by Pulse 98 96 Oximetry Oxygen Devices in Use Now: None Appearance: awake, alert. no acute distress Eyes: No Scleral Icterus, PERRLA Ears/Nose/Mouth/Throat: NL Teeth, Lips, Gums Neck: NL Appearance and Movements; NL JVP, Trachea Midline Respiratory: Symmetrical Chest Expansion and Respiratory Effort, Clear to Auscultation Cardiovascular: NL Sounds; No Murmurs; No JVD, RRR Abdominal: NL Sounds; No Tenderness; No Distention Extremities: No Edema Skin: No Rash or Ulcers Neurological: Alert and Oriented x 3 Result Diagrams: 06/10/18 10:06 06/11/18 04:57 Assess/Plan/Problems-Billing Assessment: 47 year old male without significant medical hisotry other than depression recently diagnosed with depression and anxiety has been getting more confused and disoriented to simple day to day to task presented to ED and was found to have acute rhabomyolysis wiht CPK of 14,000 on presentations - Patient Problems (1) Rhabdomyolysis Current Visit: Yes Status: Acute Code(s): M62.82 - RHABDOMYOLYSIS SNOMED Code(s): 122378957 Comment: - Undifferentiated as he denies any statins therapy and denies exercise or heavy work out - At this time I am not sure if he does have underlying genetic disorder such as Siddhartha disease, but without baseline of CPK it will make it difficult to diagnose in the acute setting. will need to have outpatient work up to monitor where his CPK will level off. could have his surgery set it off? At this time , will defer obtaining Myophosphorlase level for outpatient and only if his CPK remain elevated - Neuro input appreciated. he will also benefit from EMG and again outpatient is appropriate - Will D/c IVF fluid discharge home on light duty - He was on Buspar; Celexa 40 and Risperidone althoug they are unlikely but may need to consider them as potential as well. I did speak to Psychiatry and will discharge home on lower dose of risperidone and prn ativan. will implement Cymbalta 30 mg and titrate outpatient as needed (2) Anxiety Current Visit: Yes Status: Acute Code(s): F41.9 - ANXIETY DISORDER, UNSPECIFIED SNOMED Code(s): 75924906 Comment: - He is on "Buspar TAB * 5 mg PO BID 06/10/18 [History Confirmed 06/10/18] Celexa 40 mg PO DAILY 06/10/18 [History Confirmed 06/10/18] Risperidone 2 mg PO BEDTIME 06/10/18 [History Confirmed 06/10/18]" at home. Buspar was held as it was the last of the three. On ativan prn for now. I did speak to Psychiatry and will discharge home on lower dose of risperidone and prn ativan. will implement Cymbalta 30 mg and titrate outpatient as needed (3) Altered mental status, unspecified Current Visit: Yes Status: Acute Code(s): R41.82 - ALTERED MENTAL STATUS, UNSPECIFIED SNOMED Code(s): 839084136 Comment: - Neuro input appreciated - whether it is pathological or not. MRI brain normal and EEG normal (4) DVT prophylaxis Current Visit: Yes Status: Acute Code(s): [id number] - SNOMED Code(s): 116856523 Comment: ambulate
--- NOTE | 2018-06-12 16:34 | PN ---
Subjective Date of Service: 06/12/18 Length of Stay: 2 Days Neurology is following Mr. Choi for the evaluation and management of subjective fogginess and hyperCKemia. Interval History: Brief summary of the history: Mr. Choi is a 47-year-old who has history of akylosing spondylitis who has a six month history of "fogginess." This started s/p surgery for left rotator cuff injury. He was off Humara for approximately one month. He was hospitalized in an in-patient facility for [facility] in December 2017. The patient presented with increase in fogginess. He was incidentally found to have hyperCKemia. CK level dropped from 13k to 4k with IV fluids. He is asymptomatic and denied any muscle aches or pains. He denied any change in his urine color. 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 He denied alcohol consumption or abuse. He denied drug use. S: today, the patient is resting in bed reading the newspaper when the examiner walked in the room. He denied any distress. He was disappointed that we have not discovered an etiology to his "fogginess." Review of Systems: Denied CP, SOB, or palpitations. Past Medical History: Unchanged from Admission Objective Active Medications: Acetaminophen (Tylenol Tab*) 650 mg PO Q4H PRN PRN Reason: PAIN Atenolol (Tenormin Tab*) 50 mg PO QAM [facility] Last Admin: 06/12/18 08:00 Dose: 50 mg Citalopram Hydrobromide (Celexa Tab*) 40 mg PO DAILY [facility] Last Admin: 06/12/18 08:00 Dose: 40 mg Hydrochlorothiazide (Hydrodiuril Tab*) 25 mg PO QAM [facility] Last Admin: 06/12/18 08:00 Dose: 25 mg Sodium Chloride (Ns 0.9% 1000 Ml*) 1,000 mls @ 100 mls/hr IV PER RATE [facility] Last Admin: 06/12/18 10:02 Dose: 100 mls/hr Lorazepam (Ativan Tab(*)) 0.5 mg PO Q6H PRN PRN Reason: ANXIETY Last Admin: 11/12/18 08:03 Dose: 0.5 mg Risperidone (Risperdal*) 2 mg PO BEDTIME [facility] Last Admin: 06/11/18 21:22 Dose: 2 mg Vital Signs 06/11/18 06/11/18 06/11/18 19:22 21:29 22:12 Temperature 97.2 F 99.0 F Pulse Rate 71 62 Respiratory 17 17 17 Rate Blood Pressure 127/64 101/57 (mmHg) O2 Sat by Pulse 98 98 Oximetry 06/12/18 06/12/18 06/12/18 00:34 02:34 05:36 Temperature 97.8 F 98.1 F Pulse Rate 60 65 Respiratory 16 17 17 Rate Blood Pressure 106/62 118/61 (mmHg) O2 Sat by Pulse 97 98 Oximetry 06/12/18 06/12/18 06/12/18 07:43 08:00 08:03 Temperature 98.7 F Pulse Rate 70 Respiratory 16 18 18 Rate Blood Pressure 116/72 (mmHg) O2 Sat by Pulse 98 Oximetry 06/12/18 06/12/18 06/12/18 09:11 10:41 15:38 Temperature 97.8 F 97.7 F Pulse Rate 70 73 Respiratory 16 16 16 Rate Blood Pressure 121/60 124/72 (mmHg) O2 Sat by Pulse 98 96 Oximetry Intake and Output Last 24 Hours 06/10/18 06/11/18 06/12/18 06/13/18 06:59 06:59 06:59 06:59 Intake Total 1589 6290 1200 Output Total 0 Balance 1589 6290 1200 Weight 206 lb 4.8 oz 206 lb 4.8 oz Intake: IV Fluids 999 4700 NS (0.9%) 3700 Oral 590 1590 1200 Output: Urine 0 Other: Estimated Void Large Medium # Bowel Movements 0 0 1 Estimated Stool Amount Large # Voids 0 1 2 Oxygen Devices in Use Now: None Neurology Exam: General: Well built, muscular man in no acute distress. HEENT: Normocephelic/atraumatic, sclera anicteric, mucous membranes moist Neck: Supple Chest: Clear to auscultation bilaterally Cardiovascular: Regular rate and rhythm without murmurs, rubs, gallops Extremities: No clubbing, cyanosis, or edema Neurological Findings: Awake, Alert, Oriented to person, place, and time. No dysarthria or aphasia. Speech: fluent without dysarthric, repetition intact Cranial Nerve: PEERL, EOM intact, no facial asymmetry. Motor: s/s throughout, proximal and distal extremities x4 tone/bulk normal Sensation: intact to LT/PP bilaterally upper and lower extremities Deep Tendon Reflex: 2+ symmetric in the upper/lower extremities, Babinski - down going Finger to nose, rapid alternating movements intact without tremor, no dysdiadochokinesia Gait: intact with good arm swing and stride Result Diagrams: 06/10/18 10:06 06/11/18 04:57 Assessment/Plan A/P: Mr. Choi is a 47-year-old man with fogginess of six months duration and asymptomatic hyperCKemia. 1. Fogginess- no clear neurological etiology to explain his "fogginess." The EEG and MRI brain with/without contrast are normal. This is likely related to an underlying psychiatric condition, medication side effects, or less likely due to his inflammatory condition. ESR/CRP are normal suggesting it is not likely the latter diagnosis. He has no evidence of demyelinating disease. I have ordered vitamin B12 level to rule out other metabolic conditions that may mimic an underlying psychiatric problem. 2. HyperCKemia- asymptomatic non-traumatic rhabdomyolysis which is slowly improving. Ordered phosphorus and PTH level to rule out other electrolyte or endocrine abnormality. TSH function is normal. He is not on any statin. Strenuous activity could be playing a role but other metabolic and inflammatory myopathy should be evaluated. Follow-up with Dr. Fernandez in 3 weeks. He will need an EMG as an outpatient. If abnormal, he will need a muscle biopsy. Time spent: 35 minutes. D/w Dr. Casas and Kobi. I will sign off but please contact me for any questions or concerns.
[2018-06-12] MEDS ORDERED: risperiDONE TAB* 1 MG PO SCH (21:00)
--- NOTE | 2018-06-12 21:09 | CONS ---
CONSULTATION REPORT: DATE OF CONSULT: 06/12/18 ATTENDING PHYSICIAN: Dr. Curtis Duarte. CONSULTING PHYSICIAN: Dr. Martin Peace. REASON FOR CONSULT: Anxiety and disturbed cognition. SUBJECTIVE HISTORY: Psychiatry is asked to evaluate this 47-year-old white male with a history of longstanding inflammatory disease, who presents with several months of disturbed cognition and anxiety following an elective orthopedic procedure in November of this year. Initially, when I went to his room, the patient is gone at his MRI, but I spoke at length with his , Nicolette. She indicates that he had an elective shoulder surgery in November of 2017 and did well with this until approximately 1 week later when he awoke at night with intense pain in the shoulder. He complained simultaneously of mental fussiness , difficulty concentrating, blurred vision, anxiety. His symptoms continued despite numerous interventions. Apparently, over the summer, he went to a walk- in clinic and was placed on venlafaxine. Later, his primary care provider took him off venlafaxine and placed him on clonidine. Things got worse to the point that he started developing paranoia and for this reason, he was taken to the [facility] in March of this year where he was placed on a trial of citalopram and risperidone. Later, in the outpatient setting, he went to an outpatient nurse practitioner at the [facility] in [place] and she added a trial of buspirone. 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 He denies suicidal or homicidal ideations, but states that he cannot think straight either at home or at work. I met with the patient after his test and he was calm and cooperative. He was appropriately distressed about his symptoms. He did note that prior to his elective procedure, he discontinued the anti-inflammatory medication, Humira, and resumed it 2 weeks after surgery. The onset of the symptoms seemed to correlate to the 4-week period that he was off this medication, but it is uncertain whether this is related. Further bit of interesting history is that his CPK was grossly elevated upon admission at 13,843. This has been progressively getting lower throughout hospitalization. Symptom saenz, the patient endorses anxiety, but denies depression. He denies sleep disturbance, anhedonia, guilt, or poor energy; however, he is endorsing difficulty concentrating. PAST PSYCHIATRIC HISTORY: The patient was seeing a counselor named Karmen, but stopped seeing her when he became paranoid over the summer. His care was transferred to the [facility] in [place] in March where he sees a psychiatric nurse practitioner named Puja Saeed. The patient has no history of suicidal or homicidal behavior. He has no history of abuse or neglect. He has no history of traumatic brain injury. SUBSTANCE ABUSE HISTORY: Significant for social alcohol consumption. He does not abuse illicit drugs or tobacco. PAST MEDICAL HISTORY: Significant for an appendectomy at the age of 16 and a left shoulder surgery in November of 2017. He also has a condition of ankylosing spondylitis, hypertension. OUTPATIENT MEDICATIONS: Include: 1. Humira 10 mg subcutaneously approximately once every 2 weeks. 2. He takes atenolol 50 mg daily. 3. Hydrochlorothiazide 25 mg daily. 4. Celexa 40 mg daily. 5. BuSpar 5 mg b.i.d. 6. Risperdal 2 mg at night. 7. Meloxicam 15 mg as needed for pain. ALLERGIES: He is allergic to MEPERIDINE. FAMILY HISTORY: Significant for 2 parents, both treated for anxiety in the past. There is no history of suicidal behavior in the family. SOCIAL HISTORY: The patient was born and raised in [facility] to an intact family. He does have a brother who is 5 years younger. The patient graduated high school, then joined the [employer] and served for 4 years including combat service in the first [place] War in 1990. He has been to the same woman for 29 years and they share a 25-year-old son, who works at the same company that he does. He has no history of sexually transmitted diseases. He is monogamous with his . He was raised Sabianism, but does not actively practice any hinduism. He has no significant history of legal problems. MENTAL STATUS EXAM: The patient is a middle-aged white male, who has a large frame. He is clean, well groomed, dressed in a patient gown. He makes good eye contact. He is calm, cooperative. Speech has a normal rate, tone, and volume. Mood appears to be slightly anxious with a corresponding anxious affect. Thought process is linear and goal directed. Thought content is significant for his concerns over his symptoms. He denies suicidal or homicidal ideations. He denies auditory or visual hallucinations. He denies current paranoid thinking. Insight and judgment appear to be fair given his willingness to accept treatment. Cognitively, he is awake and alert with what would appear to be an average intellect. DIAGNOSES: [place] I: Unspecified anxiety disorder, rule out generalized anxiety disorder versus anxiety disorder secondary to general medical condition. [place] II: Deferred. ASSESSMENT: The patient is a 47-year-old white male with a history of ankylosing spondylitis, who developed severe anxiety, cognitive dissonance, and blurred vision approximately 2 weeks following an elective surgery on his left shoulder. The only stressor that he can indicate around that time is that he was obligated to discontinue his subcutaneous Humira. The patient has been treated with serotonergic medications including citalopram and buspirone with extremely limited effect. There is a rich literature that suggests that those with chronic inflammatory condition such as ankylosing spondylitis tend to benefit more from medications with norepinephrine activity. For this reason, we have recommended discontinuation of citalopram and buspirone in favor of a trial of duloxetine. The risperidone which was started for paranoia may be making his cognition worse as well and we could consider reducing the dose of this. A remote diagnostic possibility is the so-called [place] Syndrome, which can present as a late-onset cluster of diffuse neurological symptoms presumed to be secondary to toxic exposure during the first [place] war, in which the patient served. RECOMMENDATIONS TO PRIMARY TEAM: The patient's ESR and CRP are within normal limits, so I do not believe that Rheumatology consultation is warranted at this time. We do recommend discontinuing citalopram and buspirone and we have already done so as well as starting a trial of duloxetine 30 mg p.o. daily. We will reduce his risperidone from 2 mg to 1 mg nightly in the hopes of improving cognition, but still controlling his paranoid symptoms. Psychiatry will continue to follow the patient. He can follow up with the [facility] in [place] after discharge. His CPK issues are being evaluated by the hospitalist team and it is uncertain whether this is related to his cognitive issues. It is notable that sometimes neuroleptic medication such as risperidone can increase CPK and the primary team should be aware of this. Thank you for the interesting consult. [id number]/[facility] #: [id number] DOMONIQUE
[2018-06-13] MEDS: NS 0.9% 1000 ML* 1,000 ML IV SCH (06:24)
[2018-06-13] MEDS: LORazepam TAB(*) 0.5 MG PO PRN (06:26)
--- NOTE | 2018-06-13 08:27 | EEG ---
ELECTROENCEPHALOGRAPHY: DATE OF SERVICE: 06/12/18 DATE OF RECORDIN06/12/18 LOCATION: Inpatient. REFERRING PHYSICIAN: Dr. Duarte. TIME OF TRACIN:17 a.m. to 11:43 a.m. MEDICATIONS: 1. Acetaminophen. 2. Atenolol. 3. Citalopram. 4. Hydrochlorothiazide. 5. Lorazepam. 6. Risperdal. CLINICAL PROBLEM: Mr. Brian Choi is a 47-year-old man, who has episodes of brain fogginess. This EEG was obtained to evaluate for epileptiform discharges or electrographic seizures. CLINICAL STATE: Awake and drowsy. REPORT: The waking background showed appropriate organization with clearly defined anterior-posterio r voltage and frequency gradients. There was a well-defined posterior dominant rhythm of 10 Hz, whic h was symmetrical and showed normal reactivity. Anteriorly, there was an expected pattern of lower v oltage, irregular, mixed faster frequency. Hyperventilation and photic stimulation were not performe d. Single-electrode EKG showed normal sinus rhythm with rate of 75 beats per minute. Throughout the recording, there were no epileptiform discharges or electrographic seizures. CLINICAL IMPRESSION: This is a normal awake EEG with no evidence of epileptiform discharges or elect rographic seizures. Normal interictal EEG does not exclude or support diagnosis of epilepsy. Clinic al correlation is recommended. [id number]/[facility] #: [id number]
[2018-06-13] MEDS ORDERED: DULoxetine DR CAP* 30 MG CAP.DR PO SCH (09:00)
[2018-06-13] MEDS: Hydrochlorothiazide TAB* 25 MG PO SCH (09:13)
[2018-06-13] MEDS: Atenolol TAB* 50 MG PO SCH (09:13)
--- NOTE | 2018-06-13 11:38 | CONSULT ---
Identification - Patient Identification Reason for Psychiatric Consultation: Incapacitating Symptoms -: Patient is a 47 year old, M admitted on 06/10/18. - MHU Identification Employment Status: Employed Hx Psychiatric Hospitalization: Yes History - Objective HPI: Brian and his Nicolette are seen for psychiatric follow up this morning and I also spoke with Dr. Duarte afterwards. Brian continues to complain of anxiety, cognitive dissonance and functional impairment. He accepted his initial dose of duloxetine this morning and seemed to be tolerating well so far. He has a follow up appointment tomorrow at [facility] in [place]. He continues to deny SI. We discussed the possible benefits and limitations of his updated psychotropic regimen and I encouraged them to inquire with their outpatient provider about a possible trial of a psychostimulant in the event that his cognition does not soon improve. They also note that they are taking steps to get him enrolled in medical services through the [place] given the remote theoretical risk of [place] Syndrome from his service exposure in that theater. Exam Appearance: Well Developed/Nourished Hygiene: Normal Grooming: Well Kept Psychomotor Activities: Normal Exhibits Abnormal Movement: No Attitude and Relatedness: Cooperative Eye Contact: Fair - Speech Quality: Unpressured Latencies: Long Quantity: Terse Patient's Decription of Mood: "Anxious" Observed Affect: Fair Affect Consistent with: Euthymia Patient's Thought Process: Coherent Thought Content: No Passive Wish, No Suicidal Planning, No Homicidal Ideation, No Paranoid Ideation Experiencing Hallucinations: No, Sensorium is Clear Type of Hallucinations: Visual: No, Auditory: No, Command: No Level of Consciousness: Alert Orientation: Yes Intact, Yes Orientated to Time, Yes Orientated to Place, Yes Orientated to Person Impulse Control: Intact Insight and Judgement: Good Impression - Impression Clinical Impression: 47 y.o. , white, male [employer] with a history of disabling anxiety and diffuse neurological symptoms starting this summer shortly after an orthopedic procedure on his left shoulder. Inpatient DSM-V Dx: F41.9 Merits Inpatient Hospitalization: No MHU: Problem List - Patient Problems (1) Anxiety Current Visit: Yes Status: Acute Code(s): F41.9 - ANXIETY DISORDER, UNSPECIFIED SNOMED Code(s): 54520862 Comment: - He is on "Buspar TAB * 5 mg PO BID 06/10/18 [History Confirmed 06/10/18] Celexa 40 mg PO DAILY 06/10/18 [History Confirmed 06/10/18] Risperidone 2 mg PO BEDTIME 06/10/18 [History Confirmed 06/10/18]" at home. Buspar was held as it was the last of the three. On ativan prn for now. I did speak to Psychiatry and will discharge home on lower dose of risperidone and prn ativan. will implement Cymbalta 30 mg and titrate outpatient as needed Plan - Treatment Plan Treatment Plan: We have replaced citalopram with the more noradrenergic duloxetine 30mg PO qday and discontinued buspirone. Risperidone was decreased from 2 to 1mg nightly to improve cognition and because of elevated CPK. The patient will follow up outpatient tomorrow in [place]. Psychiatry is signing off. Thanks for the interesting consult. Continued Medication Management: Different Medication Medications: Current Medications Acetaminophen (Tylenol Tab*) 650 mg PO Q4H PRN PRN Reason: PAIN Atenolol (Tenormin Tab*) 50 mg PO QAM [facility] Last Admin: 06/13/18 09:13 Dose: Not Given Duloxetine HCl (Cymbalta Cap*) 30 mg PO DAILY [facility] Last Admin: 06/13/18 09:12 Dose: 30 mg Hydrochlorothiazide (Hydrodiuril Tab*) 25 mg PO QAM [facility] Last Admin: 06/13/18 09:13 Dose: Not Given Sodium Chloride (Ns 0.9% 1000 Ml*) 1,000 mls @ 100 mls/hr IV PER RATE [facility] Last Admin: 06/13/18 06:24 Dose: 100 mls/hr Lorazepam (Ativan Tab(*)) 0.5 mg PO Q6H PRN PRN Reason: ANXIETY Last Admin: 06/13/18 06:26 Dose: 0.5 mg Risperidone (Risperdal*) 1 mg PO BEDTIME [facility] Last Admin: 06/12/18 20:30 Dose: 1 mg - Discharge Plan Discharge Plan: Outpatient Follow Up Outpatient Program: [facility] [place]
--- NOTE | 2018-06-13 11:59 | PN ---
Subjective Date of Service: 06/13/18 Interval History: Patient seen this morning. Tolerated his cymbalta well. NO acute distress. eating well. no fever or chills. Discussed case extensively with neuro and psychiatry. I will discharge patient home today with close follow up with PCP, psychiatry in [place] and neurology. and patient are aware of the plan. is pleased with his care and patient feels optimistic. Past Medical History: Unchanged from Admission Objective Active Medications: Acetaminophen (Tylenol Tab*) 650 mg PO Q4H PRN PRN Reason: PAIN Atenolol (Tenormin Tab*) 50 mg PO QAM [facility] Last Admin: 06/13/18 09:13 Dose: Not Given Duloxetine HCl (Cymbalta Cap*) 30 mg PO DAILY [facility] Last Admin: 06/13/18 09:12 Dose: 30 mg Hydrochlorothiazide (Hydrodiuril Tab*) 25 mg PO QAM [facility] Last Admin: 06/13/18 09:13 Dose: Not Given Sodium Chloride (Ns 0.9% 1000 Ml*) 1,000 mls @ 100 mls/hr IV PER RATE [facility] Last Admin: 06/13/18 06:24 Dose: 100 mls/hr Lorazepam (Ativan Tab(*)) 0.5 mg PO Q6H PRN PRN Reason: ANXIETY Last Admin: 06/13/18 06:26 Dose: 0.5 mg Risperidone (Risperdal*) 1 mg PO BEDTIME [facility] Last Admin: 06/12/18 20:30 Dose: 1 mg Vital Signs - 8 hr 06/13/18 06/13/18 06/13/18 06:26 07:30 08:00 Temperature 97.5 F Pulse Rate 65 Respiratory 18 18 Rate Blood Pressure 103/52 (mmHg) O2 Sat by Pulse 95 Oximetry 06/13/18 08:55 Temperature Pulse Rate Respiratory 16 Rate Blood Pressure (mmHg) O2 Sat by Pulse Oximetry Oxygen Devices in Use Now: None Appearance: Awake, alert no distress Eyes: No Scleral Icterus Ears/Nose/Mouth/Throat: NL Teeth, Lips, Gums, Mucous Membranes Moist Neck: NL Appearance and Movements; NL JVP Result Diagrams: 06/10/18 10:06 06/11/18 04:57 Assess/Plan/Problems-Billing A/P: 47 year old male without significant medical hisotry other than depression recently diagnosed with depression and anxiety has been getting more confused and disoriented to simple day to day to task presented to ED and was found to have acute rhabomyolysis wiht CPK of 14,000 on presentations - Patient Problems (1) Rhabdomyolysis Current Visit: Yes Status: Acute Code(s): M62.82 - RHABDOMYOLYSIS SNOMED Code(s): 146664804 Comment: - Undifferentiated as he denies any statins therapy and denies exercise or heavy work out - At this time I am not sure if he does have underlying genetic disorder such as Siddhartha disease, but without baseline of CPK it will make it difficult to diagnose in the acute setting. will need to have outpatient work up to monitor where his CPK will level off. could have his surgery set it off? At this time , will defer obtaining Myophosphorlase level for outpatient and only if his CPK remain elevated - Neuro input appreciated. he will also benefit from EMG and again outpatient is appropriate. Will schedule follow up with Dr. Fernandez - Will D/c IVF fluid discharge home on light duty - He was on Buspar; Celexa 40 and Risperidone although they are unlikely but may need to consider them as potential as well. I did speak to Psychiatry and will discharge home on lower dose of risperidone. will implement Cymbalta 30 mg and titrate outpatient as needed (2) Anxiety Current Visit: Yes Status: Acute Code(s): F41.9 - ANXIETY DISORDER, UNSPECIFIED SNOMED Code(s): 48625863 Comment: - He was on "Buspar TAB * 5 mg PO BID 06/10/18 [History Confirmed 06/10/18] Celexa 40 mg PO DAILY 06/10/18 [History Confirmed 06/10/18] Risperidone 2 mg PO BEDTIME 06/10/18 [History Confirmed 06/10/18]" at home. Buspar was held as it was the last of the three. On ativan prn for now. I did speak to Psychiatry and will discharge home on lower dose of risperidone. will implement Cymbalta 30 mg and titrate outpatient as needed (3) Altered mental status, unspecified Current Visit: Yes Status: Acute Code(s): R41.82 - ALTERED MENTAL STATUS, UNSPECIFIED SNOMED Code(s): 224834910 Comment: - Neuro input appreciated - whether it is pathological or not. MRI brain normal and EEG normal (4) DVT prophylaxis Current Visit: Yes Status: Acute Code(s): ITM2399 - SNOMED Code(s): 853731723 Comment: ambulate
[2018-06-13 12:25] VITALS: BP 120/75
--- NOTE | 2018-06-15 04:44 | DS ---
CC: Cabrera Fernandez MD; Dr. [facility]ja [facility] [place]; Radha Olsen NP in [place], [place] * DISCHARGE SUMMARY: DATE OF ADMISSION: 06/10/18 DATE OF DISCHARGE: 06/13/18 FINAL DISCHARGE DIAGNOSES: 1. Confusion, etiology idiopathic, undifferentiated as of yet, suspect secondary to anxiety and depression. 2. Acute rhabdomyolysis. 3. Anxiety and depression. 4. Ankylosing spondylitis. HOSPITAL COURSE: The patient presented to [facility] on 06/10/18 with a chief complaint of "mental fog," been progressively getting worse since he underwent his left shoulder surgery on 12/12/17. He has been noticing that his mind has been quite foggy. He feels like he is unable to concentrate, Has difficulties completing simple tasks that normally he did without even thinking as part of his job for over 20 years. He did require some hospitalization secondary to his anxiety and paranoia and panic disorders and he followed with outpatient psychiatry in [place]. He was on Risperdal, Celexa, and recently added BuSpar. He came into our facility with a similar complaint, it only is getting worse since he started his medication. Therefore, he was admitted for his mental fogginess. On his workup he was noted to have significantly elevated CPK of 13,843 without any obvious trigger factor. Therefore, the patient was admitted. He was started on IV fluid hydration and his CPK responded appropriately and significant drop with fluid hydration; however, he continued to have some mental fogginess and the confusion did not improve. Neurology consult was obtained and they recommended to have an MRI of the brain as well as an EEG which both were performed and summary report did not reveal any abnormalities to indicate intracranial pathology on both MRI and EEG. We also consulted Psychiatry for help co-managing his medications. It was recommended to discontinue his Celexa and switch him to Cymbalta and he was started on 30 mg and to cut back on his Risperdal from 2 mg to 1 mg as it may help lessen the mental fogginess. The patient was seen and evaluated in the afternoon of , spoke with his at length, and he seems to be in good spirits but slightly still distressed over the fact that he had no clear answer of what is causing his mental fogginess. I advised him to set up an appointment very soon with his psychiatrist and [facility] [place] [facility] and further adjustment of his medication changes. The patient was seen , evaluated and he was deemed stable for discharge. PHYSICAL EXAMINATION: Please refer to my progress note dated 06/13/18. DISCHARGE MEDICATIONS: 1. Continue Tylenol 650 mg every 4 hours as needed. 2. Cymbalta 30 mg every day. 3. Risperidone decreased to 1 mg daily. 4. Continue atenolol 50 mg every morning. 5. Humira 10 mg subcutaneously as instructed. 6. Meloxicam 15 mg every morning. He was advised to discontinue his hydrochlorothiazide secondary to soft blood pressure and to reassess. Discontinue his risperidone 2 mg as it was switched to 1 mg. Discontinue Celexa. Discontinue BuSpar. DISCHARGE INSTRUCTIONS: The patient to follow up with his primary care provider as scheduled within 1 to 2 weeks. The patient to follow up with his neurologist, Dr. Fernandez as an outpatient for potential further followup. Appointment made on 06/19/18 at 2 p.m. Follow up with Radha Olsen NP primary care on 06/27/18. Follow up with his psychiatrist, Puja Saeed, 06/14/18. The patient to adhere to low activity level, not to carry more than 10 to 15 pounds until he is seen by his primary care provider. [id number]/[facility] #: [id number] MTDD
== END 2018-06-13 14:05 | disposition home or self-care (01) | DRG 351 ==
LOC: ED 09:07 → MED 13:29 → OBSVTOIN 14:14
PROVIDERS: ADMIT Hospitalist; ATTEND Internal Medicine
DX: M62.82 Rhabdomyolysis (principal); F44.89 Other dissociative and conversion disorders; F41.9 Anxiety disorder, unspecified; F32.9 Major depressive disorder, single episode, unspecified; M45.9 Ankylosing spondylitis of unspecified sites in spine; I10 Essential (primary) hypertension; Z79.899 Other long term (current) drug therapy; Z88.8 Allergy status to other drugs, medicaments and biological substances; Z81.8 Family history of other mental and behavioral disorders
CPT/HCPCS: 36415; 70450; 70553; 71045; 72125; 80048; 80053; 80307; 80320; 80329; 81003; 82140; 82550; 82607; 83516; 83605; 83735; 83970; 84100; 84443; 84484; 85025; 85652; 86140; 93005; 95816; 99284; A9270-GY; A9579; G0480

== ENCOUNTER 2019-08-09 17:16 | Emergency (ER) | payer BC ==
[2019-08-09 17:40] VITALS: BP 123/79
--- NOTE | 2019-08-09 18:26 | UC ---
Throat Pain/Nasal [place] HPI - HPI Summary HPI Summary: Onset 4 days ago sore throat, congestion, rhinitis, chest congestion, cough. Pt. states, "I can barely swallow." - History of Current Complaint Chief Complaint: UCGeneralIllness Stated Complaint: ST Time Seen by Provider: 08/09/19 18:14 Hx Obtained From: Patient Onset/Duration: Sudden Onset, Lasting Weeks Severity: Severe Pain Intensity: 10 Associated Signs & Symptoms: Positive: Dysphagia, Wheezing, Sinus Discomfort, Nasal Discharge - Allergies/Home Medications Allergies/Adverse Reactions: Allergies Allergy/AdvReac Type Severity Reaction Status Date / Time meperidine Allergy Palpitation Verified 08/09/19 17:32 s Home Medications: Home Medications Hydrochlorothiazide TAB* [Hydrodiuril TAB*] 25 mg PO DAILY 08/09/19 [History Confirmed 08/09/19] Ibuprofen TAB* [Advil TAB*] 600 mg PO Q6H PRN 08/09/19 [History Confirmed ] Max-Cold 2 cap PO ONCE PRN 08/09/19 [History Confirmed 08/09/19] PMH/Surg Hx/FS Hx/Imm Hx Previously Healthy: Yes - Surgical History Surgical History: Yes Surgery Procedure, Year, and Place: Appendectomy age 16. L Rotator Cuff Tear repair - Family History Known Family History: Positive: Hypertension - Social History Alcohol Use: Occasionally Substance Use Type: None Smoking Status (MU): Never Smoked Tobacco - Immunization History Most Recent Influenza Vaccination: May 2018 Most Recent Pneumonia Vaccination: never Review of Systems All Other Systems Reviewed And Are Negative: Yes Constitutional: Positive: Fatigue ENT: Positive: Sore Throat, Ear Ache, Nasal Discharge, Sinus Congestion Respiratory: Positive: Cough Is Patient Immunocompromised?: No Physical Exam Triage Information Reviewed: Yes Appearance: Well-Appearing, Well-Nourished, Pain Distress Vital Signs: Initial Vital Signs Temp 99.1 F 08/09/19 17:37 Pulse 93 08/09/19 17:37 Resp 17 08/09/19 17:37 BP 123/79 08/09/19 17:37 Pulse Ox 100 08/09/19 17:37 Vital Signs Reviewed: Yes Eye Exam: Normal ENT: Positive: Pharyngeal erythema, TM bulging, TM red, Tonsillar swelling, Tonsillar exudate Neck: Positive: Enlarged Nodes @ - right cervical Respiratory: Positive: Chest non-tender, Wheezing, Inspiration Cardiovascular Exam: Normal Cardiovascular: Positive: RRR, No Murmur, Pulses Normal Abdominal Exam: Normal Neurological Exam: Normal Psychological Exam: Normal Skin Exam: Normal Throat Pain/Nasal Course/Dx - Course Course Of Treatment: hx obtained, exam performed, meds reviewed, treated for sinusitis and pharyngitis - Differential Dx/Diagnosis Differential Diagnosis/HQI/PQRI: Otitis Media, Pharyngitis, Sinusitis, URI Provider Diagnosis: Sinusitis, Pharyngitis Discharge ED - Sign-Out/Discharge Documenting (check all that apply): Patient Departure All imaging exams completed and their final reports reviewed: No Studies - Discharge Plan Condition: Stable Disposition: HOME Prescriptions: Amoxicillin PO (*) [Amoxicillin 875 MG (*)] 875 mg PO BID #20 tab predniSONE [Prednisone 20 MG TAB] 40 mg PO DAILY #10 tablet Patient Education Materials: Pharyngitis (ED) Referrals: Sharyn Hernandez [Primary Care Provider] - Additional Instructions: 1. take the medication as prescribed. 2. Increase fluids, salt water gargles 3. Get rest 4. FOllow up if not improving in the next 3-4 days - Billing Disposition and Condition Condition: STABLE Disposition: Home - Attestation Statements Provider Attestation: Per institutional requirements, I have reviewed the chart, however, I was not consulted specifically or made aware of this patient by the midlevel provider. I did not personally evaluate, interact with , or disposition this patient.
== END 2019-08-09 18:31 | disposition home or self-care (01) ==
LOC: UCCORT 17:16
DX: J32.9 Chronic sinusitis, unspecified (principal); J02.9 Acute pharyngitis, unspecified; R53.83 Other fatigue; H92.09 Otalgia, unspecified ear; Z88.5 Allergy status to narcotic agent
CPT/HCPCS: 99212; G0463